=== PATIENT | female | born 1980 | race Caucasian/White ===

== ENCOUNTER → 2021-04-12 | Day surgery (SDC) | payer OTHER ==
[~2021-04-12] VITALS: Ht 157.5 cm; Wt 84.8 kg
[~2021-04-12] MED LIST: PERCOCET 5-3251 EACH PO
[2021-04-12 07:40] LABS: HCG (URINE) SCREEN NEGATIVE (NEGATIVE)
== END | disposition home or self-care (01) ==
LOC: FAS 07:25
PROVIDERS: Anesthesiology
DX: C50.912 Malignant neoplasm of unspecified site of left female breast (principal); Z87.891 Personal history of nicotine dependence; Z88.6 Allergy status to analgesic agent
CPT/HCPCS: 71045; 76000; 84703; C1788; J0690; J1100; J1170; J1644; J1885; J2250; J2405; J2704; J3010; J7120